=== PATIENT | male | born 1970 | race Caucasian/White ===

== ENCOUNTER 2018-01-22 16:24 | Emergency (ER) | payer OTHER ==
[2018-01-22] MEDS ORDERED: TDAP ADULT 0.5 ML INJ (BOOSTRIX) IM ONE (16:53)
--- NOTE | 2018-01-22 16:57 | EDPHY ---
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 The incident occurred a little over an hour prior to arrival in drove himself here by private vehicle for evaluation. Bleeding stopped with direct pressure. No other exacerbating factors. ROS: Neuro: No numbness or tingling. Musculoskeletal: No difficulty moving the affected finger post injury and no bony pain. Integumentary: He does not feel he has a foreign body in the wound. 5 point ROS is otherwise negative besides what is indicated in HPI and ROS Past Medical/Surgical History: Immunizations are not up-to-date. Last tetanus was 10 years ago. Smoking Status: Heavy smoker Physical Exam: Physical Exam Vital signs are normal. General: No acute distress Cardiac: Brisk capillary refill is intact throughout the affected extremity. Skin: No rash or pallor. Extremities: Atraumatic normal except for right hand Right hand: Patient has a 2 cm full-thickness laceration just distal to the 3rd metacarpophalangeal joint dorsal aspect of the hand crossing the proximal 3rd finger with mild bleeding. On wound exploration there is a laceration of the extensor tendon approximately 90% of the tendon is lacerated. A remains well-approximated. Neuro: Alert and oriented with no sensorimotor deficits. Patient maintains 2 point discrimination in the affected finger. Initial differential diagnosis: Simple laceration, complex laceration-tendon injury Constitutional: Initial Vital Signs Temperature (C) 36.9 C 01/22/18 16:35 Heart Rate 98 01/22/18 16:35 Respiratory Rate 16 01/22/18 16:35 Blood Pressure 141/86 H 01/22/18 16:35 O2 Sat (%) 94 01/22/18 16:35 O2 Delivery Mode Room Air Allergies/Adverse Reactions: No Known Allergies Allergy (Unverified 01/22/18 16:41) Home Medications: Medication Instructions Recorded NK [No Known Home Meds] 01/22/18 MDM/Departure - MDM Procedures: The wound is described physical exam-2 cm full-thickness wound with associated extensor tendon laceration comprising 90% of the extensor tendon. The wound was copiously irrigated with saline. The wound was explored for foreign bodies and none were found. The wound was prepped and draped in the normal sterile fashion. The wound was anesthetized using a 50 50 mix of 1% plain lidocaine and 0.5% Marcaine, 27 gauge needle, 2.5 mL with good effect. The tendinous repaired with 4 0 Prolene [id number] suture. The edges were reapproximated using 4-0 prolene -7 running sutures with good hemostasis and cosmesis. The patient tolerated the procedure well. There were no complications. Patient is instructed to keep his 3rd finger in extension. Medications Given: Discontinued Medications Diphtheria/Tetanus/Acell Pertussis (Boostrix) 0.5 ml IM .ONCE ONE Stop: 01/22/18 16:54 Last Admin: 01/22/18 17:12 Dose: 0.5 ml ED Course/Re-evaluation: Discussion: Complex finger laceration and a zone 4 extensor tendon laceration repaired without complications. I discussed this case with Dr. Kearney-hand specialist on-call who will follow up with the patient this week - Depart Disposition: Home, Routine, Self-Care Clinical Impression: Finger laceration involving tendon Qualifiers: Encounter type: initial encounter Qualified Code(s): S61.219A - Laceration without foreign body of unspecified finger without damage to nail, initial encounter Condition: Good Instructions: Finger Laceration (ED), Tendon Laceration (ED) Additional Instructions: Diagnosis: Extensor tendon laceration and finger laceration Plan: Keep the wound clean and dry for the next 2 days then gently clean with warm soapy water Keep the finger in extension and extension splint. No use of affected hand this week. Call Dr. Kearney-hand specialist arrange follow-up appointment for further evaluation this week. Tylenol and/or ibuprofen for discomfort if needed. Stand Alone Forms: Work Limited Duty Referrals: MD FANTASMA [Other] - As per Instructions Stephane Kearney MD [Medical Doctor] - As per Instructions
[2018-01-22 18:25] VITALS: BP 135/80
== END 2018-01-22 18:24 | disposition home or self-care (01) ==
LOC: CED 16:24
PROC: 0XQQXZZ Repair Right Middle Finger, External Approach (ICD-10-PCS; principal; 2018-01-22)
DX: S66.322A Laceration of extensor muscle, fascia and tendon of right middle finger at wrist and hand level, initial encounter (principal); S61.212A Laceration without foreign body of right middle finger without damage to nail, initial encounter; W45.8XXA Other foreign body or object entering through skin, initial encounter; Y93.E9 Activity, other interior property and clothing maintenance; Y99.0 Civilian activity done for income or pay; Z23 Encounter for immunization
CPT/HCPCS: L3925